=== PATIENT | male | born 1975 | race Caucasian/White ===

== ENCOUNTER 2018-02-27 11:30 | Emergency (ER) | payer SELFPAY ==
[~2018-02-27] VITALS: Ht 167.6 cm; Wt 81.6 kg
[~2018-02-27 11:30] MED LIST: PROP40TA PO; TRAZ-86 PO
[2018-02-27] MEDS ORDERED: HYDROcodone/APAP 5/325MG 1 TAB TABLET PO ONE (13:00)
--- NOTE | 2018-02-27 13:02 | RAD ---
Examination: Left Lower Extremity Venous Doppler Ultrasound History: Left leg pain, swelling Comparison: None Procedure: Dutton scale, color flow 2D and spectal waveform analysis images are obtained with and without compression in the area of the common femoral vein, superficial femoral vein - femoral vein junction, main femoral vein (superficial femoral vein) and popliteal vein. Veins of the proximal calf are also imaged. Findings: There is normal duplex flow, color flow and compressibility of all visualized vein segments. No evidence of deep venous thrombus is present. Impression: No evidence of DVT in the visualized left lower extremity venous system. Electronically signed by: Kraig Renner MD (02/27/2018 12:58 PM) [id number]
--- NOTE | 2018-02-27 13:39 | PHYS DOC ---
Past Medical History Past Medical History: Anxiety, Depression Additional Past Medical Histor: Qtrkyoa-Zjqjg-Qyhpg disease Past Surgical History: Other Additional Past Surgical Histo: bone disection, achilles Alcohol Use: Rarely Drug Use: None Adult General Chief Complaint Chief Complaint: ANKLE PROBLEM HPI HPI Patient is a 43 year old male with history of depression, anxiety, who presents today complaining of 10 out of 10 left ankle pain that has been going on since February 27, 2018 after he twisted his ankle. Patient states he was seen at the urgent care at the [facility] had a negative he states he has continued to have pain, so his own doctor today and they requested him to come to the emergency room to get a venous Doppler to rule out DVT. Review of Systems Review of Systems Constitutional: Denies fever or chills [] Musculoskeletal: Reports left ankle pain. Integument: Denies rash or skin lesions [] Neurologic: Denies headache, focal weakness or sensory changes [] All other systems were reviewed and found to be within normal limits, except as documented in this note. Current Medications Current Medications Current Medications Medications (Trade) Dose Ordered Sig/Clemente Start Time Stop Time Status Last Admin Dose Admin Acetaminophen/ Hydrocodone Bitart (Lortab 5/325) 2 tab 1X ONCE 02/27/18 13:00 02/27/18 13:01 DC 02/27/18 12:50 2 TAB Allergies Allergies Allergies Coded Allergies Type Severity Reaction Last Updated Verified tramadol Allergy Severe Shortness of Air, tolerates Lortab 06/28/17 Yes cyclobenzaprine Allergy Intermediate Hives 06/28/17 Yes ketorolac Allergy Mild Itching 06/28/17 Yes Physical Exam Physical Exam Constitutional: Well developed, well nourished, no acute distress, non-toxic appearance. [] Skin: Warm, dry, no erythema, no rash. [] Back: No tenderness, no CVA tenderness. [] Extremities: Left ankle with no obvious deformity, old healed incision noted on the Achilles tendon tenderness on palpation of the left medial ankle. Full range of motion to the left ankle and foot including flexion and extension of the foot. +2 left pedal pulse. Cap refill less than 2 seconds left toes. Sensation intact to the left lower extremity. Trace edema noted to the left ankle. Neurologic: Alert and oriented X 3, normal motor function, normal sensory function, no focal deficits noted. [] Psychologic: Affect normal, judgement normal, mood normal. [] Current Patient Data Vital Signs Vital Signs Date Time Temp Pulse Resp B/P (MAP) Pulse Ox O2 Delivery O2 Flow Rate FiO2 02/27/18 12:50 20 98 Room Air 02/27/18 12:15 98.0 87 159/105 (123) 98.0 EKG EKG [] Radiology/Procedures Radiology/Procedures []PROCEDURE: VENOUS LOWER EXTREMITY LEFT Examination: Left Lower Extremity Venous Doppler Ultrasound History: Left leg pain, swelling Comparison: None Procedure: Dutton scale, color flow 2D and spectal waveform analysis images are obtained with and without compression in the area of the common femoral vein, superficial femoral vein - femoral vein junction, main femoral vein (superficial femoral vein) and popliteal vein. Veins of the proximal calf are also imaged. Findings: There is normal duplex flow, color flow and compressibility of all visualized vein segments. No evidence of deep venous thrombus is present. Impression: No evidence of DVT in the visualized left lower extremity venous system. Electronically signed by: Kraig Renner MD (02/27/2018 12:58 PM) [id number] DICTATED and SIGNED BY: KRAIG RENNER MD DATE: 02/27/18 1257 Course & Med Decision Making Course & Med Decision Making Pertinent Labs and Imaging studies reviewed. (See chart for details) This is a 43-year-old male patient presenting to the ED today complaining of left ankle pain after he twisted his ankle 2017, was seen at urgent care , had a negative workup, he states his doctor send it to the ED today for venous Doppler to rule out any DVT. Venous Doppler of the left lower extremity is negative for any acute findings. Informed patient he'll be discharged to home with NSAIDs. He started stating they "hurt his stomach" informed him he can take the medications with food. Also offered Medrol Dosepak. He states he cannot afford it. Given prescription for prednisone for 5 days and diclofenac. Provided him orthopedic doctor for follow-up. He already has a brace for his ankle. Ice elevation encouraged. Dragon Disclaimer Dragon Disclaimer This electronic medical record was generated, in whole or in part, using a voice recognition dictation system. Departure Departure Impression: Primary Impression: Left ankle sprain Disposition: HOME, SELF-CARE Condition: STABLE Referrals: SHANE IBRAHIM MD (PCP) RUTHANN LYN II, MD Follow-up in the next 7 days Patient Instructions: Ankle Sprain Additional Instructions: You were seen for left ankle sprain. Continue wearing the brace you have as tolerated. Ice and elevate the extremity take the prescribed medications as ordered. Follow-up with orthopedic doctor in one week. Scripts Prednisone (PREDNISONE) 50 Mg Tablet 1 TAB PO DAILY, #5 TAB Prov: NNAMDI CLARK APRN 02/27/18 Diclofenac Sodium (DICLOFENAC SODIUM) 50 Mg Tablet.dr 1 TAB PO BID, #30 TAB 0 Refills Prov: NNAMDI CLARK APRN 02/27/18 Problem Qualifiers Primary Impression: Left ankle sprain Encounter type: initial encounter Involved ligament of ankle: unspecified ligament Qualified Codes: S93.402A - Sprain of unspecified ligament of left ankle, initial encounter NNAMDI CLARK APRN Feb 27, 2018 13:39
[2018-02-27] MEDS ORDERED: DICL50TA4 PO (13:44)
[2018-02-27] MEDS ORDERED: PRED50TA PO (13:44)
[2018-02-27 14:00] VITALS: BP 147/88
== END 2018-02-27 14:14 | disposition home or self-care (01) ==
LOC: ER 11:30
DX: S93.402A Sprain of unspecified ligament of left ankle, initial encounter (principal); F41.9 Anxiety disorder, unspecified; F32.9 Major depressive disorder, single episode, unspecified; Z88.5 Allergy status to narcotic agent; Z88.8 Allergy status to other drugs, medicaments and biological substances; X50.1XXA Overexertion from prolonged static or awkward postures, initial encounter; Y93.89 Activity, other specified; Y92.89 Other specified places as the place of occurrence of the external cause; Y99.8 Other external cause status
CPT/HCPCS: 93971; 99284

== ENCOUNTER 2018-09-18 22:39 | Emergency (ER) | payer SELFPAY ==
[~2018-09-18] VITALS: Ht 167.6 cm; Wt 79.4 kg
[~2018-09-18 22:39] MED LIST changes: +DICL50TA4 PO; +PRED50TA PO
[2018-09-18 23:36] LABS: BASO % 1 % (0-3); EOS # 0.1 x10^3/uL (0.0-0.7); EOS % 2 % (0-3); HEMOGLOBIN 15.1 g/dL (13.0-17.5); LYMPH # 2.6 x10^3/uL (1.0-4.8); LYMPH % 38 % (24-48); MEAN CORPUSCULAR HEMOGLOBIN 30 pg (25-35); MEAN CORPUSCULAR HGB CONC 34 g/dL (31-37); MEAN CORPUSCULAR VOLUME 89 fL (79-100); MONO # 0.5 x10^3/uL (0.0-1.1); MONO % 8 % (0-9); NEUT # 3.5 x10^3uL (1.8-7.7); NEUT % 52 % (31-73); PLATELET COUNT 279 x10^3/uL (140-400); RED BLOOD COUNT 4.96 x10^6/uL (4.30-5.70); RED CELL DISTRIBUTION WIDTH 12.3 % (11.5-14.5); WHITE BLOOD COUNT 6.8 x10^3/uL (4.0-11.0)
[2018-09-18] MEDS ORDERED: IV NORMAL SALINE 1000ML BAG 1,000 ML IV ONE (23:45)
[2018-09-18] MEDS ORDERED: FAMOTIDINE 20 MG/2 ML VIAL IVP ONE (23:45)
[2018-09-18] MEDS ORDERED: fentaNYL PF VIAL 100 MCG/2 ML VIAL IV ONE (23:45)
--- NOTE | 2018-09-18 23:50 | PHYS DOC ---
Past Medical History Past Medical History: Anxiety, Depression Additional Past Medical Histor: Hohrwsd-Ocbzm-Attxz disease (NNAMDI CLARK APRN) Past Surgical History: Other Additional Past Surgical Histo: bone disection, achilles (NNAMDI CLARK APRN) Alcohol Use: Rarely Drug Use: None (NNAMDI CLARK APRN) Adult General Chief Complaint Chief Complaint: ABDOMINAL PAIN HPI HPI Patient is a 43 year old male with history of depression, anxiety, who presents to the ED today complaining of 10 out of 10 right lower quadrant abdominal pain that began 3 days ago. Patient is also complaining of nausea and diarrhea since yesterday. Denies any fever. Denies any hematemesis or melena. (NNAMDI CLARK APRN) Review of Systems Review of Systems Constitutional: Denies fever or chills [] Eyes: Denies change in visual acuity, redness, or eye pain [] HENT: Denies nasal congestion or sore throat [] Respiratory: Denies cough or shortness of breath [] Cardiovascular: No additional information not addressed in HPI [] GI: Reports right lower quadrant abdominal pain, nausea, diarrhea. Denies vomiting, bloody stools : Denies dysuria or hematuria [] Musculoskeletal: Denies back pain or joint pain [] Integument: Denies rash or skin lesions [] Neurologic: Denies headache, focal weakness or sensory changes [] All other systems were reviewed and found to be within normal limits, except as documented in this note. (NNAMDI CLARK APRN) Current Medications Current Medications Current Medications Medications (Trade) Dose Ordered Sig/Clemente Start Time Stop Time Status Last Admin Dose Admin Acetaminophen/ Hydrocodone Bitart (Lortab 5/325) 1 tab 1X ONCE 09/19/18 01:45 09/19/18 01:46 DC 09/19/18 01:46 1 TAB Famotidine (Pepcid Vial) 20 mg 1X ONCE 09/18/18 23:45 09/18/18 23:46 DC 09/18/18 23:56 20 MG Fentanyl Citrate (Fentanyl 2ml Vial) 50 mcg 1X ONCE 09/18/18 23:45 09/18/18 23:46 DC 09/18/18 23:56 50 MCG Hyoscyamine (Anaspaz) 0.125 mg 1X ONCE 09/19/18 01:45 09/19/18 01:46 DC 3/7/19 01:45 0.125 MG Info (CONTRAST GIVEN -- Rx MONITORING) 1 each PRN DAILY PRN 09/19/18 00:00 09/19/18 01:49 DC Iohexol (Omnipaque 300 Mg/ml) 75 ml 1X ONCE 09/19/18 00:00 09/19/18 00:01 DC 09/19/18 00:02 75 ML Sodium Chloride 1,000 ml @ 1,000 mls/hr 1X ONCE 09/18/18 23:45 09/19/18 00:44 DC 09/18/18 23:56 1,000 MLS/HR (WOJCIECH FERREIRA DO) Allergies Allergies Allergies Coded Allergies Type Severity Reaction Last Updated Verified tramadol Allergy Severe Shortness of Air, tolerates Lortab 06/28/17 Yes cyclobenzaprine Allergy Intermediate Hives 06/28/17 Yes ketorolac Allergy Mild Itching 06/28/17 Yes (WOJCIECH FERREIRA DO) Physical Exam Physical Exam Constitutional: Well developed, well nourished, no acute distress, non-toxic appearance. [] HENT: Normocephalic, atraumatic, bilateral external ears normal, oropharynx moist, no oral exudates, nose normal. [] Eyes: PERRLA, EOMI, conjunctiva normal, no discharge. [] Neck: Normal range of motion, no tenderness, supple, no stridor. [] Cardiovascular:Heart rate regular rhythm, no murmur [] Lungs & Thorax: Bilateral breath sounds clear to auscultation [] Abdomen: Bowel sounds normal, soft, diffuse tenderness the right upper quadrant or right lower quadrant, negative psoas sign, negative obturator sign, no guarding no rebound tenderness, no masses, no pulsatile masses. [] Skin: Warm, dry, no erythema, no rash. [] Back: No tenderness, no CVA tenderness. [] Extremities: No tenderness, no cyanosis, no clubbing, ROM intact, no edema. [] Neurologic: Alert and oriented X 3, normal motor function, normal sensory function, no focal deficits noted. [] Psychologic: Affect normal, judgement normal, mood normal. [] (TERRIEUNGNNAMDI Barajas BLOWER INSTALLER) Physical Exam Constitutional: Well developed, well nourished, no acute distress, non-toxic appearance. [] HENT: Normocephalic, atraumatic, oropharynx moist Abdomen: Soft, RUQ tenderness on palpation, no guarding/rebound tenderness/ distention Skin: Warm, dry, no erythema, no rash. [] Back: No tenderness, no CVA tenderness. [] (WOJCIECH FERREIRA DO) Current Patient Data Vital Signs Vital Signs Date Time Temp Pulse Resp B/P (MAP) Pulse Ox O2 Delivery O2 Flow Rate FiO2 09/19/18 01:46 18 98 Room Air 09/19/18 01:00 72 118/86 (97) 09/18/18 23:00 98.4 98.4 (WOJCIECH FERREIRA DO) Lab Values Laboratory Tests Test 09/18/18 22:55 09/18/18 23:17 Urine Collection Type Unknown Urine Color Yellow Urine Clarity Clear Urine pH 6.0 Urine Specific [place] 1.025 Urine Protein Negative mg/dL (NEG-TRACE) Urine Glucose (UA) Negative mg/dL (NEG) Urine Ketones (Stick) Negative mg/dL (NEG) Urine Blood Negative (NEG) Urine Nitrite Negative (NEG) Urine Bilirubin Negative (NEG) Urine Urobilinogen Dipstick 0.2 mg/dL (0.2 mg/dL) Urine Leukocyte Esterase Negative (NEG) Urine RBC Rare /HPF (0-2) Urine WBC Occ /HPF (0-4) Urine Squamous Epithelial Cells Occ /LPF Urine Bacteria 0 /HPF (0-FEW) Urine Mucus Mod /LPF Urine Opiates Screen Pos (NEG) Urine Methadone Screen Neg (NEG) Urine Barbiturates Neg (NEG) Urine Phencyclidine Screen Neg (NEG) Urine Amphetamine/Methamphetamine Neg (NEG) Urine Benzodiazepines Screen Pos (NEG) Urine Cocaine Screen Neg (NEG) Urine Cannabinoids Screen Pos (NEG) Urine Ethyl Alcohol Neg (NEG) White Blood Count 6.8 x10^3/uL (4.0-11.0) Red Blood Count 4.96 x10^6/uL (4.30-5.70) Hemoglobin 15.1 g/dL (13.0-17.5) Hematocrit 44.0 % (39.0-53.0) Mean Corpuscular Volume 89 fL (79-100) Mean Corpuscular Hemoglobin 30 pg (25-35) Mean Corpuscular Hemoglobin Concent 34 g/dL (31-37) Red Cell Distribution Width 12.3 % (11.5-14.5) Platelet Count 279 x10^3/uL (140-400) Neutrophils (%) (Auto) 52 % (31-73) Lymphocytes (%) (Auto) 38 % (24-48) Monocytes (%) (Auto) 8 % (0-9) Eosinophils (%) (Auto) 2 % (0-3) Basophils (%) (Auto) 1 % (0-3) Neutrophils # (Auto) 3.5 x10^3uL (1.8-7.7) Lymphocytes # (Auto) 2.6 x10^3/uL (1.0-4.8) Monocytes # (Auto) 0.5 x10^3/uL (0.0-1.1) Eosinophils # (Auto) 0.1 x10^3/uL (0.0-0.7) Basophils # (Auto) 0.0 x10^3/uL (0.0-0.2) Sodium Level 143 mmol/L (136-145) Potassium Level 3.6 mmol/L (3.5-5.1) Chloride Level 104 mmol/L (98-107) Carbon Dioxide Level 30 mmol/L (21-32) Anion Gap 9 (6-14) Blood Urea Nitrogen 13 mg/dL (8-26) Creatinine 0.7 mg/dL (0.7-1.3) Estimated GFR (Cockcroft-Gault) 124.3 BUN/Creatinine Ratio 19 (6-20) Glucose Level 95 mg/dL (70-99) Calcium Level 9.1 mg/dL (8.5-10.1) Total Bilirubin 0.6 mg/dL (0.2-1.0) Aspartate Amino Transferase (AST) 28 U/L (15-37) Alanine Aminotransferase (ALT) 66 U/L (16-63) H Alkaline Phosphatase 88 U/L (46-116) Total Protein 7.3 g/dL (6.4-8.2) Albumin 3.8 g/dL (3.4-5.0) Albumin/Globulin Ratio 1.1 (1.0-1.7) Lipase 147 U/L (73-393) Ethyl Alcohol Level < 10 mg/dL (0-10) Laboratory Tests 09/18/18 23:17 Laboratory Tests 09/18/18 23:17 (WOJCIECH FERREIRA DO) EKG EKG [] (NNAMDI CLARK APRN) Radiology/Procedures Radiology/Procedures [] (NNAMDI CLARK APRN) Course & Med Decision Making Course & Med Decision Making Pertinent Labs and Imaging studies reviewed. (See chart for details) This is a 43-year-old male patient presenting to the ED today with complaints of right lower quadrant abdominal pain for 3 days, nausea and diarrhea since yesterday. CBC is normal, CMP with normal AST, ALT 66. Drug screen noted for marijuana, benzodiazepines, and opiates. CT of the abdomen and pelvic is negative for any acute findings. Noted for non obstructive renal calculi. F/u with GI and PCP next week. Results given to patient informed i will not write him any rx for narcotics. Nurse states patient pushed the call light stating he wants to be seen by a doctor. Dr. Ferreira informed the RN he will not write him any narcotics either. (NNAMDI CLARK APRN) Course & Med Decision Making Called to see patient by RN after discharge as patient concerned for lack of definitive diagnosis. Patient seen and evaluated by myself. Patient noted to have RUQ abdominal pain. Patient with history of reported gallbladder disease ( biliary sludge). Labs reviewed. CT abd/pelvis without acute process. Pain was addressed. KTRACS obtained and noted to last have narcotics in 08/07/18. Patient given Rx for norco 5/325mg x 10 tabs. Patient stable for discharge with outpatient follow-up with PCP/GI. GI referral provided. Discussed findings and plan with patient and family, who acknowledge understanding and agreement. (WOJCIECH FERREIRA DO) Dragon Disclaimer Dragon Disclaimer This electronic medical record was generated, in whole or in part, using a voice recognition dictation system. (NNAMDI CLARK APRN) Departure Departure Impression: Primary Impression: Right lower quadrant pain Additional Impressions: Nausea Diarrhea Disposition: HOME, SELF-CARE Condition: STABLE Referrals: NO PCP (PCP) DERRICK BOLDEN MD follow up in 1 week Patient Instructions: Abdominal Pain, Diarrhea, Nausea and Vomiting, Easy-to- Read Additional Instructions: You were evaluated in the emergency room for abdominal pain, nausea and diarrhea. We could not find any acute cause for your symptoms. We provided you a associate vice president, follow-up with them as an outpatient. We wrote you prescriptions for medications to help you with your symptoms, take the medications as ordered. Also follow-up with your primary care doctor next week Scripts Hydrocodone/Apap 5-325 (NORCO 5-325 TABLET) 1 Each Tablet 1 TAB PO PRN Q6HRS PRN for PAIN, #10 TAB 0 Refills Prov: WOJCIECH FERREIRA DO 09/19/18 Dicyclomine Hcl (DICYCLOMINE HCL) 20 Mg Tablet 1 TAB PO TID, #30 TAB 1 Refill Prov: NNAMDI CLARK APRN 09/19/18 Ondansetron (ONDANSETRON ODT) 4 Mg Tab.rapdis 1 TAB PO PRN Q6-8HRS, #16 TAB Prov: NNAMDI CLARK APRN 09/19/18 Attending Signature Attending Signature I have personally interviewed and examined the patient. All charts, labs, and imaging studies were reviewed. I agree with the PA/CINDER BLOCK MASON's findings, exam, and plan. (WOJCIECH FERREIRA DO) Problem Qualifiers Additional Impressions: Diarrhea Diarrhea type: unspecified type Qualified Codes: R19.7 - Diarrhea, unspecified NNAMDI CLARK APRN Sep 18, 2018 23:50 WOJCIECH FERREIRA DO Sep 19, 2018 01:39
[2018-09-18 23:51] LABS: CALCIUM 9.1 mg/dL (8.5-10.1); CREATININE 0.7 mg/dL (0.7-1.3); GFR 124.3; POTASSIUM 3.6 mmol/L (3.5-5.1)
[2018-09-18 23:57] LABS: ALBUMIN 3.8 g/dL (3.4-5.0); ALBUMIN/GLOBULIN RATIO 1.1 (1.0-1.7); TOTAL BILIRUBIN 0.6 mg/dL (0.2-1.0); TOTAL PROTEIN 7.3 g/dL (6.4-8.2)
[2018-09-19] MEDS ORDERED: CONTRAST GIVEN. MC PRN
[2018-09-19] MEDS ORDERED: IOHEXOL 300 MG/ML 100ML VIAL. IV ONE
[2018-09-19 00:29] LABS: BILIRUBIN,URINE NEGATIVE (NEG); CLARITY,URINE CLEAR; COLOR,URINE YELLOW; NITRITE,URINE NEGATIVE (NEG); PROTEIN,URINE NEGATIVE (NEG-TRACE); UROBILINOGEN,URINE 0.2 mg/dL (0.2 mg/dL)
[2018-09-19 00:36] LABS: BACTERIA,URINE 0 /HPF (0-FEW); BARBITURATES NEG (NEG); BENZODIAZEPINES POS (NEG); CANNABINOIDS POS (NEG); COCAINE NEG (NEG); METHADONE NEG (NEG); OPIATES POS (NEG); PHENCYCLIDINE NEG (NEG); RBC,URINE RARE /HPF (0-2); SQUAMOUS EPITHELIAL CELL,UR OCC /LPF; WBC,URINE OCC /HPF (0-4)
[2018-09-19 00:37] LABS: AMPHETAMINE/METHAMPHETAMINE NEG (NEG)
[2018-09-19] MEDS ORDERED: ONDA4TAB12 PO (00:58)
[2018-09-19] MEDS ORDERED: DICY20TA3 PO (00:58)
[2018-09-19 01:00] VITALS: BP 118/86
--- NOTE | 2018-09-19 01:03 | RAD ---
CT abdomen pelvis with contrast dated 09/18/2018. Comparison made to 06/26/2017. Clinical data indication: Abdominal pain and nausea. TECHNIQUE: Contiguous axial imaging of the abdomen and pelvis performed after the administration of 75 cc Omnipaque 300. One or more of the following individualized dose reduction techniques were utilized for this examination: 1. Automated exposure control 2. Adjustment of the mA and/or kV according to patient size 3. Use of iterative reconstruction technique. FINDINGS: Limited images of lung bases are clear. Heart size within normal limits. No pleural or pericardial effusion. Liver, spleen, pancreas, adrenal glands, gallbladder and kidneys are unremarkable. No hydronephrosis. There is a 2 mm calcific stone at the lower pole left kidney. Unopacified GI tract normal in caliber and contour. No focal bowel wall thickening. No inflammatory stranding in the mesentery. The appendix is normal in caliber. No ascites or lymphadenopathy. Images of pelvis a nondistended urinary bladder. No calcific bladder stone. Prostate gland upper limits of normal in size. Small bilateral inguinal hernia containing only fat. No free fluid or pelvic lymphadenopathy. Bone windows show no acute findings. IMPRESSION: 1. No acute abnormality of abdomen or pelvis. Normal appendix. 2. Left-sided nephrolithiasis, nonobstructive. Electronically signed by: Abhijit Zavala MD (09/19/2018 1:00 AM) [facility]
[2018-09-19] MEDS ORDERED: HYDR-3164 PO (01:38)
[2018-09-19] MEDS ORDERED: HYDROcodone/APAP 5/325MG 1 TAB TABLET PO ONE (01:45)
[2018-09-19] MEDS ORDERED: HYOSCYAMINE 0.125 MG TAB.RAPDIS PO ONE (01:45)
== END 2018-09-19 01:38 | disposition home or self-care (01) ==
LOC: ER 22:39
DX: R10.31 Right lower quadrant pain (principal); R11.0 Nausea; R19.7 Diarrhea, unspecified; F41.9 Anxiety disorder, unspecified; F32.9 Major depressive disorder, single episode, unspecified; Z88.5 Allergy status to narcotic agent; Z88.8 Allergy status to other drugs, medicaments and biological substances
CPT/HCPCS: 36415; 74177; 80053; 80307; 81001; 83690; 85025; 96361; 96374; 96375; 99284; G0480; J3010; J3490; J7030; Q9967

== ENCOUNTER 2021-05-10 16:45 | Emergency (ER) | payer MEDICAID ==
[~2021-05-10] VITALS: Ht 167.6 cm; Wt 74.5 kg
[~2021-05-10 16:45] MED LIST changes: +ACET325T9 PO; +DICY20TA PO; +GABA300C18 PO; +HYDR-3164 PO; +LISI20TA18 PO; +OLAN5TAB67 PO; +ONDA4TAB12 PO; +PANT40TA77 PO; +TRAZ-123 PO; -TRAZ-86 PO; +VITA25006 PO
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
--- NOTE | 2021-05-10 17:48 | EKG ---
[facility] [address] [place] [address] Test Date: 2021-05-10 Test Time: 16:53:04 Pat Name: ALFA CORONA Department: Room: Gender: M Block Inspector: : 1975 Requested By: RENATA CHILDS Order Number: [id number] Reading MD: Graham Davies Measurements Intervals [place] Rate: 78 P: 28 IA: 142 QRS: -28 QRSD: 90 T: 48 QT: 366 QTc: 421 Interpretive Statements SINUS RHYTHM LEFTWARD AXIS Electronically Signed On 05-11-2021 15:59:31 CDT by Graham Davies
[2021-05-10 17:51] VITALS: BP 108/68
--- NOTE | 2021-05-10 17:51 | RAD ---
CT HEAD/BRAIN WO Date: 05/10/2021 5:15 PM Clinical Indication: head injury Comparison: None. Technique: 5 mm axial tomographic images were obtained of the head without contrast. These were view ed on brain and bone windows. One or more of the following dose reduction techniques were utilized: A utomated exposure control (AEC), Adjustment of mA and/or kV according to patient size, Use of iterati ve reconstruction technique such as ASiR, CT scan done according to ALARA and image gently/image arredondo ly Findings: The brain parenchyma is normal in attenuation. No intra- or extra-axial mass or fluid collection. No acute hemorrhage. The ventricles are normal in size, shape, and morphology. The issa-white matter sancho ction is normal. The subarachnoid cisterns are patent. The visualized paranasal sinuses are normal. The visualized portions of the orbits and globes are no rmal. The mastoid air cells are clear. The linoleum printer topogram shows no lytic lesion or fracture. Impression: No acute intracranial process. Electronically signed by: Cal Farris MD (05/10/2021 5:49 PM) [facility]
== END 2021-05-10 18:04 | disposition home or self-care (01) ==
LOC: ER 16:45
DX: S00.01XA Abrasion of scalp, initial encounter (principal); G89.29 Other chronic pain; M54.2 Cervicalgia; R51.9 Headache, unspecified; F17.200 Nicotine dependence, unspecified, uncomplicated; Z88.6 Allergy status to analgesic agent; Z88.8 Allergy status to other drugs, medicaments and biological substances; W22.8XXA Striking against or struck by other objects, initial encounter; Y93.89 Activity, other specified; Y92.89 Other specified places as the place of occurrence of the external cause; Y99.8 Other external cause status
CPT/HCPCS: 70450; 93005; 99284-25

== ENCOUNTER → 2021-11-30 | Emergency (ER) | payer MEDICAID ==
[~2021-11-30] VITALS: Ht 167.6 cm; Wt 70.0 kg
[2021-11-30 22:11] LABS: BARBITURATES NEG (NEG); BENZODIAZEPINES POS (NEG); CANNABINOIDS POS (NEG); COCAINE NEG (NEG); METHADONE NEG (NEG); OPIATES NEG (NEG); PHENCYCLIDINE NEG (NEG)
[2021-11-30 22:17] LABS: AMPHETAMINE/METHAMPHETAMINE NEG (NEG)
[2021-11-30 22:53] LABS: BASO % 1 % (0-3); EOS % 1 % (0-3); HEMATOCRIT 41.3 % (39.0-53.0); HEMOGLOBIN 14.4 g/dL (13.0-17.5); LYMPH # 1.8 x10^3/uL (1.0-4.8); LYMPH % 37 % (24-48); MEAN CORPUSCULAR HEMOGLOBIN 31 pg (25-35); MEAN CORPUSCULAR HGB CONC 35 g/dL (31-37); MEAN CORPUSCULAR VOLUME 89 fL (79-100); MONO # 0.6 x10^3/uL (0.0-1.1); MONO % 12 % (0-9); NEUT # 2.5 x10^3/uL (1.8-7.7); NEUT % 50 % (31-73); PLATELET COUNT 263 x10^3/uL (140-400); RED BLOOD COUNT 4.63 x10^6/uL (4.30-5.70); RED CELL DISTRIBUTION WIDTH 12.7 % (11.5-14.5)
[2021-11-30 23:01] LABS: BACTERIA,URINE 0 /HPF (0-FEW); HYALINE CASTS, URINE FEW /HPF; RBC,URINE 0 /HPF (0-2); WBC,URINE 0 /HPF (0-4)
[2021-11-30 23:02] LABS: CALCIUM 9.1 mg/dL (8.5-10.1); CREATININE 0.8 mg/dL (0.7-1.3); POTASSIUM 3.7 mmol/L (3.5-5.1)
[2021-11-30 23:14] LABS: ALBUMIN 3.9 g/dL (3.4-5.0); ALBUMIN/GLOBULIN RATIO 1.1 (1.0-1.7); TOTAL BILIRUBIN 0.6 mg/dL (0.2-1.0); TOTAL PROTEIN 7.3 g/dL (6.4-8.2)
[2021-11-30 23:15] LABS: ACETAMIN < 2 mcg/ml (10-30); SALIC 5.3 mg/dL (2.8-20.0)
[2021-11-30 23:16] LABS: ETHANOL < 10 mg/dL (0-10)
--- NOTE | 2021-12-01 00:13 | PHYS DOC ---
Past Medical History Past Medical History: Anxiety, Depression Additional Past Medical Histor: Qoywrko-Srkys-Gmyvs disease,DRUG ADDICTION,CHRONIC PAIN Past Surgical History: No Surgical History Additional Past Surgical Histo: bone disection,achilles,L ANKLE Smoking Status: Current Every Day Smoker Alcohol Use: Rarely Drug Use: None General Adult EDM: Chief Complaint: ANXIETY/PANIC ATTACK HPI: HPI: Patient is a 46 year old male with history of anxiety, depression, presenting to the ED today complaining of stress. Patient states "I want to check out". Patient denies any suicidal plan. Patient states his girlfriend just kicked him out of the house and he is currently under a lot of stress. He states he might be homeless. Patient appears very anxious. He is tearful. Denies any HI Review of Systems: Review of Systems: Constitutional: Denies fever or chills. [] Eyes: Denies change in visual acuity. [] HENT: Denies nasal congestion or sore throat. [] Respiratory: Denies cough or shortness of breath. [] Cardiovascular: Denies chest pain or edema. [] GI: Denies abdominal pain, nausea, vomiting, bloody stools or diarrhea. [] : Denies dysuria. [] Musculoskeletal: Denies back pain or joint pain. [] Integument: Denies rash. [] Neurologic: Denies headache, focal weakness or sensory changes. [] Endocrine: Denies polyuria or polydipsia. [] Lymphatic: Denies swollen glands. [] Psychiatric: Reports anxiety, stress Heart Score: C/O Chest Pain: N/A Risk Factors: Risk Factors: DM, Current or recent (<one month) smoker, HTN, HLP, family history of CAD, obesity. Risk Scores: Score 0 - 3: 2.5% MACE over next 6 weeks - Discharge Home Score 4 - 6: 20.3% MACE over next 6 weeks - Admit for Clinical Observation Score 7 - 10: 72.7% MACE over next 6 weeks - Early Invasive Strategies Allergies: Allergies: Allergies Coded Allergies Type Severity Reaction Last Updated Verified tramadol Allergy Severe Shortness of Air, tolerates Lortab 06/28/17 Yes cyclobenzaprine Allergy Intermediate Hives 06/28/17 Yes ketorolac Allergy Mild Itching 06/28/17 Yes Physical Exam: PE: Constitutional: Well developed, well nourished, no acute distress, non-toxic appearance. [] HENT: Normocephalic, atraumatic, bilateral external ears normal, oropharynx moist, no oral exudates, nose normal. [] Eyes: PERRLA, EOMI, conjunctiva normal, no discharge. [] Neck: Normal range of motion, no tenderness, supple, no stridor. [] Cardiovascular:Heart rate regular rhythm, no murmur [] Lungs & Thorax: Bilateral breath sounds clear to auscultation [] Abdomen: Bowel sounds normal, soft, no tenderness, no masses, no pulsatile masses. [] Skin: Warm, dry, no erythema, no rash. [] Back: No tenderness, no CVA tenderness. [] Extremities: No tenderness, no cyanosis, no clubbing, ROM intact, no edema. [] Neurologic: Alert and oriented X 3, normal motor function, normal sensory function, no focal deficits noted. [] Psychologic: Anxious, tearful, flat affect Current Patient Data: Labs: Laboratory Tests Test 11/30/21 21:20 11/30/21 22:40 Urine Collection Type Unknown Urine Color (Auto) Yellow Urine Turbidity Clear Urine pH (Auto) 6.0 (<5.0-8.0) Urine Specific [place] 1.029 (1.000-1.030) Urine Protein (Auto) 30 mg/dL (Negative) Urine Glucose (Auto)(UA) Negative mg/dL (Negative) Urine Ketones (Auto) Trace mg/dL (Negative) Urine Blood (Auto) Negative (Negative) Urine Nitrite Negative (Negative) Urine Bilirubin (Auto) Negative (Negative) Urine Urobilinogen (Auto) 2 mg/dL (Normal) Urine Leukocyte Esterase (Auto) Negative (Negative) Urine RBC 0 /HPF (0-2) Urine WBC 0 /HPF (0-4) Urine Squamous Epithelial Cells Occ /LPF Urine Bacteria 0 /HPF (0-FEW) Urine Hyaline Casts Few /HPF Urine Mucus Mod /LPF Urine Opiates Screen Neg (NEG) Urine Methadone Screen Neg (NEG) Urine Barbiturates Neg (NEG) Urine Phencyclidine Screen Neg (NEG) Urine Amphetamine/Methamphetamine Neg (NEG) Urine Benzodiazepines Screen Pos (NEG) Urine Cocaine Screen Neg (NEG) Urine Cannabinoids Screen Pos (NEG) Urine Ethyl Alcohol Neg (NEG) White Blood Count 5.0 x10^3/uL (4.0-11.0) Red Blood Count 4.63 x10^6/uL (4.30-5.70) Hemoglobin 14.4 g/dL (13.0-17.5) Hematocrit 41.3 % (39.0-53.0) Mean Corpuscular Volume 89 fL (79-100) Mean Corpuscular Hemoglobin 31 pg (25-35) Mean Corpuscular Hemoglobin Concent 35 g/dL (31-37) Red Cell Distribution Width 12.7 % (11.5-14.5) Platelet Count 263 x10^3/uL (140-400) Neutrophils (%) (Auto) 50 % (31-73) Lymphocytes (%) (Auto) 37 % (24-48) Monocytes (%) (Auto) 12 % (0-9) H Eosinophils (%) (Auto) 1 % (0-3) Basophils (%) (Auto) 1 % (0-3) Neutrophils # (Auto) 2.5 x10^3/uL (1.8-7.7) Lymphocytes # (Auto) 1.8 x10^3/uL (1.0-4.8) Monocytes # (Auto) 0.6 x10^3/uL (0.0-1.1) Eosinophils # (Auto) 0.0 x10^3/uL (0.0-0.7) Basophils # (Auto) 0.0 x10^3/uL (0.0-0.2) Sodium Level 139 mmol/L (136-145) Potassium Level 3.7 mmol/L (3.5-5.1) Chloride Level 105 mmol/L (98-107) Carbon Dioxide Level 26 mmol/L (21-32) Anion Gap 8 (6-14) Blood Urea Nitrogen 15 mg/dL (8-26) Creatinine 0.8 mg/dL (0.7-1.3) Estimated GFR (Cockcroft-Gault) 105.0 BUN/Creatinine Ratio 19 (6-20) Glucose Level 118 mg/dL (70-99) H Calcium Level 9.1 mg/dL (8.5-10.1) Total Bilirubin 0.6 mg/dL (0.2-1.0) Aspartate Amino Transferase (AST) 16 U/L (15-37) Alanine Aminotransferase (ALT) 26 U/L (16-63) Alkaline Phosphatase 80 U/L (46-116) Total Protein 7.3 g/dL (6.4-8.2) Albumin 3.9 g/dL (3.4-5.0) Albumin/Globulin Ratio 1.1 (1.0-1.7) Lipase 62 U/L (73-393) L Salicylates Level 5.3 mg/dL (2.8-20.0) Salicylate Last Dose Date Salicylate Last Dose Time Acetaminophen Level < 2 mcg/ml (10-30) L Acetaminophen Last Dose Date Acetaminophen Last Dose Time Ethyl Alcohol Level < 10 mg/dL (0-10) Laboratory Tests 11/30/21 22:40 Laboratory Tests 11/30/21 22:40 Vital Signs: Vital Signs Date Time Temp Pulse Resp B/P (MAP) Pulse Ox O2 Delivery O2 Flow Rate FiO2 11/30/21 21:32 98.8 108 16 137/80 (99) 97 Room Air 98.8 EKG: EKG: [] Radiology/Procedures: Radiology/Procedures: [] Course & Med Decision Making: Course & Med Decision Making Pertinent Labs and Imaging studies reviewed. (See chart for details) This is a 46-year-old male patient presenting to the ED today stating he wants to "check out" he states he is under a lot of stress. He states the girlfriend just kicked him out. He has no suicidal plan, no homicidal ideations. Yajaira from [facility] team came and evaluated patient. He was safety planed to [facility] Disclaimer: David Disclaimer: This electronic medical record was generated, in whole or in part, using a voice recognition dictation system. Departure Departure Impression: Primary Impression: Anxiety Additional Impression: Stress Disposition: 01 HOME / SELF CARE / HOMELESS Condition: STABLE Referrals: AURY DURAN MD (PCP) follow up with your doctor as soon as you can Patient Instructions: Anxiety and Panic Attacks, Ocan-ap-Hdpw, Stress Additional Instructions: Please follow up with resources provided by Yajaira from the PAT team and ensure you go to [facility] NNAMDI CLARK APRN December 01, 2021 00:13
[2021-12-01 00:15] VITALS: BP 122/74
== END | disposition home or self-care (01) ==
LOC: ER 21:17
DX: F41.9 Anxiety disorder, unspecified (principal); F43.9 Reaction to severe stress, unspecified; F32.9 Major depressive disorder, single episode, unspecified; F17.200 Nicotine dependence, unspecified, uncomplicated; G89.29 Other chronic pain; Z88.8 Allergy status to other drugs, medicaments and biological substances
CPT/HCPCS: 80053; 80307; 80329; 81001; 83690; 85025; 99283; G0480